=== PATIENT | male | born 1970 | race Asian ===

== ENCOUNTER 2020-08-21 21:27 | Observation (INO) ==
[2020-08-22] MEDS ORDERED: Melatonin 3 MG TABLET PO PRN (00:52)
[2020-08-22] MEDS ORDERED: Ondansetron 4 MG/2 ML VIAL IVP PRN (00:52)
[2020-08-22] MEDS ORDERED: Perflutren Lipid Microsphere 1.3 ML in 0.9 % Sodium Chloride 8.7 ML IVP PRN (00:52)
[2020-08-22] MEDS ORDERED: Naloxone 0.4 MG/ML INJ IVP PRN (00:52)
[2020-08-22] MEDS ORDERED: Acetaminophen 325 MG TABLET PO PRN (00:52)
[2020-08-22 02:44] LABS: Basophils # 0.1 K/mcL (0.0-0.2); Basophils % 1.3 %; Eosinophils # 0.5 K/mcL (0.0-0.6); Eosinophils % 4.6 %; Hematocrit 40.6 % (37.5-50.1); Hemoglobin 13.3 g/dL (12.9-16.9); Immature Granulocytes % 3.4 % (0-4); Lymphocytes % 31.2 %; Mean Corpuscular HGB Conc 32.8 g/dL (31.6-35.5); Mean Corpuscular Hemoglobin 28.5 pg (28.0-33.3); Mean Corpuscular Volume 87.1 fL (83.0-100.0); Mean Platelet Volume 9.5 fL (9.4-12.4); Monocytes # 0.9 K/mcL (0.0-1.3); Monocytes % 9.4 %; Neutrophils # 4.9 K/mcL (1.6-8.9); Platelet Count 224 K/mcL (140-400); Red Blood Count 4.66 M/mcL (4.19-5.50); Red Cell Distribution Width 13.1 % (11.5-14.5); Segmented Neutrophils % 50.1 %; White Blood Count 9.7 K/mcL (4.3-11.1)
[2020-08-22 02:50] LABS: INR 1.1; Prothrombin Time 12.6 Seconds (9.4-12.1)
[2020-08-22 03:06] LABS: BUN/Creatinine Ratio 11 (6-26); Blood Urea Nitrogen 11 mg/dL (6-20); Calcium 9.5 mg/dL (8.6-10.3); Carbon Dioxide 26 mEq/L (23-29); Chloride 106 mEq/L (98-107); Cholesterol 141 mg/dL (< 200); Glucose 104 mg/dL (70-105); HDL Cholesterol 28 mg/dL (40-59); LDL Cholesterol,Calculated 75 mg/dL (< 100); Magnesium 2.1 mg/dL (1.6-2.6); Osmolality,Calculated 290 (280-300); Sodium 140 mEq/L (136-145); Triglycerides 191 mg/dL (< 150); eGFR For African Americans > 60 (> 60); eGFR For Non-African Americans > 60 (> 60)
[2020-08-22 07:18] VITALS: BP 121/77; PULSE 63; TEMP 97.5; O2SAT 96
== END 2020-08-22 15:13 | disposition home or self-care (01) ==
LOC: 3BNU → SUATTDRO 23:59
PROVIDERS: ADMIT Internal Medicine; ATTEND Family Medicine